=== PATIENT | male | born 1985 | race African-American/Black ===

== ENCOUNTER 2019-10-27 10:45 | Emergency (ER) | payer SELFPAY ==
[~2019-10-27] VITALS: Ht 160 cm; Wt 84.0 kg
[2019-10-27] MEDS ORDERED: KETOROLAC 60MG/2ML VIAL IM ONE (12:00)
[2019-10-27 12:35] VITALS: BP 118/76
== END 2019-10-27 12:53 | disposition home or self-care (01) ==
LOC: ER 12:48
DX: S00.531A Contusion of lip, initial encounter (principal); Y08.89XA Assault by other specified means, initial encounter; Y93.9 Activity, unspecified; Y92.9 Unspecified place or not applicable
CPT/HCPCS: 96372; 99283; J1885; Z7610